=== PATIENT | male | born 1995 | race Caucasian/White ===

== ENCOUNTER 2017-04-12 20:18 | Emergency (ER) | payer BC ==
[~2017-04-12] VITALS: Ht 190.5 cm; Wt 117.2 kg
[~2017-04-12 20:18] MED LIST: MINO100C22 PO; PROP20TA67 PO
[2017-04-12 20:22] VITALS: Ht 190.5 cm; Wt 117.2 kg
[2017-04-12] MEDS ORDERED: CEPH500C PO (20:36)
[2017-04-12] MEDS ORDERED: BCTROWC EXT (20:36)
--- NOTE | 2017-04-12 20:37 | EMERGENCY ROOM VISIT NOTE ---
History First contact with patient: 20:28 Chief Complaint: BITE Stated Complaint: INSECT BITE (INFECTED) History of Present Illness The patient is a 22 year old male who presents to the Emergency Room with complaints of an infected insect bite. The patient states that he has had a red area to his left upper thigh for the past 3 days. He states the area of redness surrounding it has gradually increased. He rates the discomfort a 2/ 10. He denies any fevers/chills. Review of Systems A complete 10 point review of systems was reviewed with the patient with pertinent positives and negatives as per history of present illness. All else were negative. Past Medical/Surgical History Medical Problems: (1) No significant past medical history Surgical Problems: (1) No significant past surgical history Family History No significant family history Social History Smoking Status: Never Smoker Alcohol Use: none Marital Status: single Occupation Status: [employer] student Current/Historical Medications Scheduled Cephalexin Monohydrate (Keflex), 500 MG PO QID Mupirocin (Bactroban 2% Oint), 1 APPLN EXT BID Propranolol (Inderal), 20 MG PO BID Physical Exam Vital Signs Date Time Temp Pulse Resp B/P (MAP) Pulse Ox O2 Delivery O2 Flow Rate FiO2 04/12/17 20:46 36.9 90 16 130/82 95 04/12/17 20:22 36.9 90 16 130/82 95 Room Air Physical Exam VITALS: Vitals are noted on the nurse's note and reviewed by myself. Vital signs stable. GENERAL: This is a 22-year-old male, in no acute distress, nondiaphoretic, well- developed well-nourished. SKIN: There is an erythematous papule consistent with insect bite on the proximal left inner leg. There is surrounding erythema. There is no induration. HEART: Regular rate and rhythm without murmurs gallops or rubs. LUNGS: Clear to auscultation bilaterally without wheezes, rales or rhonchi. MUSCULOSKELETAL: Full range of motion of the left lower extremity. NEURO: Patient was alert and oriented to person place and time. Medical Decision & Procedures Medications Administered Medications (Trade) Dose Ordered Sig/Angela Route Start Time Stop Time Status Last Admin Dose Admin Cephalexin Monohydrate (Keflex 500MG Home Pack) 1 homepack NOW ONCE PO 04/12/17 20:45 04/12/17 20:46 DC 7/26/17 20:46 1 [facility] Medical Decision Differential diagnosis includes cellulitis, abscess, among others. The patient was evaluated as above. He has a mild cellulitis to the left thigh. This has been ongoing for several days. He will be placed on a short course of Keflex and was prescribed Bactroban ointment to be used topically. He was instructed to follow-up with [facility] or return here as needed for any worsening symptoms. He verbalized understanding of my assessment and treatment plan and was discharged home in good condition. Medication Reconcilliation Current Medication List: was personally reviewed by me Blood Pressure Screening Patient's blood pressure: Normal blood pressure Impression Primary Impression: Cellulitis Departure Information Dispostion Home / Self-Care Condition GOOD Prescriptions Mupirocin (Bactroban 2% Oint) 66 Appln/22 Gm Oint 1 APPLN EXT BID, #1 TUBE Prov: Parvin Freeman .SHIRLEY 04/12/17 Cephalexin Monohydrate (Keflex) 500 Mg Cap 500 MG PO QID for 6 Days, #24 CAP Prov: Parvin Freeman PA-C 04/12/17 Referrals No Doctor, Assigned (PCP) Patient Instructions [facility] Additional Instructions You were prescribed Keflex to be taken 4 times daily for total of 7 days. This is an antibiotic. All antibiotics have the potential to cause diarrhea. Stop this medication and contact a medical provider if you were to develop any significant adverse side effects including: wheezing, shortness of breath, passing out, vomiting, or a diffuse rash. Always take antibiotics as directed and COMPLETE the ENTIRE course regardless of the improvement of your symptoms. Apply the Bactroban ointment twice daily for 7 days. For pain control, you can use the following deul-xcx-nsjodck medicines (if >12 yo): - Regular strength (325mg/tab) Tylenol (acetaminophen) 2 tabs every 4-6 hours as needed. Do not exceed 12 tablets in a 24 hour period. Avoid taking more than 4 grams (4000 mg) of Tylenol per day. This includes any other sources of acetaminophen you may take on a regular basis. - Regular strength (200 mg/tab) Advil (ibuprofen) 1-2 tabs every 4-6 hours as needed. Do not exceed a dose of 3200 mg per day. Follow-up with a primary care provider for recheck. Return to the emergency department with any significantly worsening redness, fevers, or any other new/concerning symptoms. Problem Qualifiers Primary Impression: Cellulitis Site of cellulitis: extremity Site of cellulitis of extremity: lower extremity Laterality: left Qualified Codes: L03.116 - Cellulitis of left lower limb
[2017-04-12] MEDS ORDERED: CEPHALEXIN 500MG HOME PACK 1 EA BTL PO ONE (20:45)
[2017-04-12 20:46] VITALS: BP 130/82; PULSE 90; TEMP 36.9; O2SAT 95
== END 2017-04-12 20:53 | disposition home or self-care (01) ==
LOC: C.EDB 20:20 → C.EDD 20:53
DX: L03.116 Cellulitis of left lower limb (principal)

== ENCOUNTER 2017-07-09 10:50 | Emergency (ER) | payer BC ==
[~2017-07-09] VITALS: Ht 190.5 cm; Wt 121.0 kg
[~2017-07-09 10:50] MED LIST changes: +BCTROWC EXT; -MINO100C22 PO
[2017-07-09 10:54] VITALS: Ht 190.5 cm; Wt 121.0 kg
[2017-07-09] MEDS ORDERED: CEFTRIAXONE SOD INJ 1 GM ADDVIAL IV STA (11:17)
[2017-07-09 11:53] LABS: BASO % 0.2 %; BASO ABS # 0.02 K/uL (0-0.2); COMPLETE YES; EOS % 2.1 %; HEMATOCRIT 42.6 % (42-52); IG% 0.4 %; LYMPH % 22.5 %; LYMPH ABS # 2.41 K/uL (1.2-3.4); MEAN CELL VOLUME 80.4 fL (80-100); MEAN CORPUSCULAR HEMOGLOBIN 28.9 pg (25-34); MEAN CORPUSCULAR HGB CONC 35.9 g/dl (32-36); MEAN PLATELET VOLUME 8.7 fL (7.4-10.4); MONO % 6.6 %; NEUT % 68.2 %; PLATELET COUNT 211 K/uL (130-400); WHITE BLOOD COUNT 10.71 K/uL (4.8-10.8)
[2017-07-09 12:12] LABS: CALCIUM 9.3 mg/dl (8.5-10.1); CREATININE 1.17 mg/dl (0.60-1.40); POTASSIUM 3.9 mmol/L (3.5-5.1)
[2017-07-09] MEDS ORDERED: CEPH500C2 PO (12:56)
[2017-07-09] MEDS ORDERED: DOXY100C2 PO (12:56)
[2017-07-09 13:05] VITALS: BP 124/72; PULSE 76; TEMP 37; O2SAT 98
--- NOTE | 2017-07-10 11:27 | EMERGENCY ROOM VISIT NOTE ---
ED Visit Note First contact with patient: 11:01 Chief Complaint: I have a leg infection. History of Present Illness: Mr. Quinones is a 22-year-old white male who ambulates into the ED complaining of a possible infection over the lateral aspect of the left thigh. Patient reports he noted to [place]-like lesions on the lateral aspect of his left thigh yesterday. He broke these pimples open and then squeezed the temples. He then reports as the day progressed he started noticing increasing pain, redness and swelling over the lateral aspect of the thigh. He reports she had difficulty sleeping last night because of his discomfort. Currently he is complaining of pain that he describes as if someone hit him with a baseball bat in the thigh. He rates his discomfort 8/10. His pain is nonradiating. His pain worsens with palpation and minimally with walking. He has not identified any alleviating factors related to the pain. He has not taken medication for pain prior to arrival at the hospital. Associated with his pain seemed reports he had some chills last night but does not know if he had any ivory fevers. He denies other skin eruptions, other skin color changes, headache, dizziness, lightheadedness, upper respiratory tract symptoms, cough, wheezing, shortness of breath, chest pain, abdominal pain, decreased appetite, nausea, vomiting, extremity weakness/numbness/tingling Review of Systems: As noted above in history of present illness. All body systems were reviewed and found to be negative as noted above. Past Medical History: Previous episode of cellulitis. Current Medications: Inderal. Allergies to Medications: Sulfa. Social History: Patient is currently employed; he feels safe in his home environment; he admits to alcohol use and denies tobacco use. Physical Examination: Vital Signs: Date Time Temp Pulse Resp B/P (MAP) Pulse Ox O2 Delivery O2 Flow Rate FiO2 07/09/17 13:05 37.0 76 18 124/72 98 07/09/17 12:32 76 18 124/72 98 Room Air 07/09/17 10:54 37.0 77 18 133/81 98 Room Air GENERAL: 22-year-old male in mild distress due to pain, nontoxic-appearing, afebrile and hemodynamically stable. NEUROLOGICAL: Awake, alert and oriented to person, place and time. Answering questions appropriately and following commands. Normal gait. Good hand eye coordination. No focal motor sensory deficits. SKIN: Warm, dry and pink. Left Lateral Thigh: Over the lateral aspect of the thigh there is a large area of erythema extending from the hip distally and around to the anterior aspect. Within this area there are 2 scabbed over lesions that appears to be where he broke the pimples open. There is no palpable abscesses in this area. The area is warm/hot. There is no lymphangitis and there is no drainage from the wound. HEENT: Atraumatic and normocephalic. PERRLA. Sclera white and conjunctiva pink. Pharynx is nonerythematous or edematous. Speech normal. No lymphadenopathy. Trachea midline. No jugular venous distention. THORAX: Lungs sounds are clear to auscultation and equal bilaterally with symmetrical chest wall. No wheezing, rales or rhonchi. ABDOMEN: Flat, soft and nontender. Positive bowel sounds in all quadrants. No guarding, rigidity or organomegaly. LEFT LOWER EXTREMITY: No tenderness over the hip, knee or ankle. Full range of motion of the hip, knee and ankle against resistance. No bony deformity or crepitus. No shortening or malrotation. All distal neurovascular statuses are intact and equal bilaterally. No calf tenderness or cords. ED Course: Patient is assessed as noted above. Patient's medication list was noted. Laboratory Testing: Test 07/09/17 11:31 Range/Units White Blood Count 10.71 4.8-10.8 K/uL Red Blood Count 5.30 4.7-6.1 M/uL Hemoglobin 15.3 14.0-18.0 g/dL Hematocrit 42.6 42-52 % Mean Corpuscular Volume 80.4 80-100 fL Mean Corpuscular Hemoglobin 28.9 25-34 pg Mean Corpuscular Hemoglobin Concent 35.9 32-36 g/dl Platelet Count 211 130-400 K/uL Mean Platelet Volume 8.7 7.4-10.4 fL Neutrophils (%) (Auto) 68.2 % Lymphocytes (%) (Auto) 22.5 % Monocytes (%) (Auto) 6.6 % Eosinophils (%) (Auto) 2.1 % Basophils (%) (Auto) 0.2 % Neutrophils # (Auto) 7.31 1.4-6.5 K/uL Lymphocytes # (Auto) 2.41 1.2-3.4 K/uL Monocytes # (Auto) 0.71 0.11-0.59 K/uL Eosinophils # (Auto) 0.22 0-0.5 K/uL Basophils # (Auto) 0.02 0-0.2 K/uL RDW Standard Deviation 38.6 36.4-46.3 fL RDW Coefficient of Variation 13.3 11.5-14.5 % Immature Granulocyte % (Auto) 0.4 % Immature Granulocyte # (Auto) 0.04 0.00-0.02 K/uL Sodium Level 138 136-145 mmol/L Potassium Level 3.9 3.5-5.1 mmol/L Chloride Level 103 98-107 mmol/L Carbon Dioxide Level 29 21-32 mmol/L Anion Gap 6.0 3-11 mmol/L Blood Urea Nitrogen 18 7-18 mg/dl Creatinine 1.17 0.60-1.40 mg/dl Est Creatinine Clear Calc Drug Dose 140.0 ml/min Estimated GFR () 102.7 Estimated GFR (Non- 88.6 BUN/Creatinine Ratio 15.0 10-20 Random Glucose 94 70-99 mg/dl Calcium Level 9.3 8.5-10.1 mg/dl Blood Culture: Pending Patient was given 1 g of Rocephin IV for antibiotic coverage. Patient was offered pain medication and refused. Patient's case was reviewed with ; we agreed on diagnostic approach , treatment, disposition and plan. Patient was educated about today's findings and instructed on his treatment plan ; he verbalized understanding and agreement with this plan. Clinical Impression: Left lower extremity cellulitis. Disposition: Patient discharged home in stable condition; prior to departure he was reassessed and subjectively reported he was feeling better and rated his overall discomfort 5/10. Plan: Patient was prescribed Keflex 500 mg 4 times a day for 10 days and doxycycline 100 mg 2 times a day for 10 days. Patient was encouraged use ibuprofen or acetaminophen as needed for pain and/or fevers. Patient was encouraged to keep the area clean with soap and water. Patient was encouraged to follow-up at [facility] or return to the ED in 36-48 hours for recheck and culture results. Patient was encouraged return the ED sooner for worsening/uncontrolled pain, fevers, worsening cellulitis outside his whine of demarcation, red streaking or any new/concerning symptoms.
== END 2017-07-09 13:06 | disposition home or self-care (01) ==
LOC: C.EDB 10:51 → C.EDD 13:06
DX: L03.116 Cellulitis of left lower limb (principal); Z79.899 Other long term (current) drug therapy

== ENCOUNTER 2017-07-11 17:05 | Emergency (ER) | payer BC ==
[~2017-07-11] VITALS: Ht 190.5 cm; Wt 123.4 kg
[~2017-07-11 17:05] MED LIST changes: +CEPH500C2 PO; +DOXY100C2 PO
[2017-07-11 17:07] VITALS: TEMP 36.3; Ht 190.5 cm; Wt 123.4 kg
[2017-07-11 17:36] VITALS: BP 168/76; PULSE 76; O2SAT 99
--- NOTE | 2017-07-11 22:07 | EMERGENCY ROOM VISIT NOTE ---
ED Visit Note First contact with patient: 17:12 CHIEF COMPLAINT: Wound check HISTORY OF PRESENT ILLNESS: This 22-year-old patient presents to the emergency department for a recheck of left thigh cellulitis. Patient states the infection has been getting better. No fevers. He is been taking antibiotics as directed. Previous care outlined has been followed without difficulty. REVIEW OF SYSTEMS: A 6 system review of systems was completed with positives and pertinent negatives listed in the HPI. ALLERGIES: Sulfa MEDICATIONS: Doxy, Keflex PMH: Unchanged from previous visit. PHYSICAL EXAM: Vital Signs reviewed, see Nurse's notes. Patient is afebrile, vital signs stable. GENERAL: Pleasant male, awake, alert, well appearing, no acute distress SKIN: Inspection of the left thigh reveals improving cellulitis. MUSCULOSKELETAL: Left femur are nontender to palpation. NEURO: No sensory or motor deficits noted. EMERGENCY DEPARTMENT COURSE AND DECISION MAKING: I examined the patient. The patient presented with an isolated wound as above. The cellulitis is healing well. ER Treatment: Patient is advised to follow-up with family care in a few days or here in the ER sooner for fevers, spreading of infection, worsening signs or symptoms or as needed. Discharge instructions reviewed. Discharged in stable condition. DIAGNOSIS: Healing left thigh cellulitis, wound recheck TREATMENT PLAN: As below Current/Historical Medications Scheduled Cephalexin Monohydrate (Keflex), 500 MG PO QID Doxycycline Hyclate (Vibramycin), 100 MG PO BID Propranolol (Inderal), 20 MG PO BID Allergies Coded Allergies: Sulfa Antibiotics (Unverified Allergy, Unknown, RASH, 07/09/17) Vital Signs Date Time Temp Pulse Resp B/P (MAP) Pulse Ox O2 Delivery O2 Flow Rate FiO2 07/11/17 17:36 76 168/76 99 07/11/17 17:35 76 168/76 99 Room Air 07/11/17 17:07 36.3 74 20 165/85 99 Room Air Departure Information Impression Primary Impression: Encounter for wound re-check Additional Impression: elevated blood pressure Dispostion Home / Self-Care Condition GOOD Referrals Jesse Rolon MD (PCP) Forms WORK / SCHOOL INSTRUCTIONS, HOME CARE DOCUMENTATION FORM, IMPORTANT VISIT INFORMATION Patient Instructions Cellulitis - [facility], [facility] Additional Instructions Continue antibiotics as prescribed from your prior ER visit. Monitor your blood pressure. It was high today. Ibuprofen(Motrin, Advil) may be used for fever or pain. Use 600mg every six hours as needed. Take with food. Avoid using more than 2400mg in a 24 hour period. Do not use 2400mg per day for more than three consecutive days without physician direction. Prolonged inappropriate use can lead to stomach upset or ulcers. (AND/OR) Acetaminophen(Tylenol) may be used for fever or pain. Use 1000mg every six hours as needed. Avoid using more than 3000mg in a 24 hour period. Warm compresses to the affected area 4 times daily for 15-20 minutes. Rest and drink plenty of fluids. Continue current medications. Return to the ER for severe pain, persistent fevers, spreading redness, or any worsening of your condition. Follow up with your primary physician within 2-3 days for a recheck of the current condition. Problem Qualifiers
== END 2017-07-11 17:37 | disposition home or self-care (01) ==
LOC: C.EDB 17:07 → C.EDD 17:37
DX: L03.116 Cellulitis of left lower limb (principal); Z09 Encounter for follow-up examination after completed treatment for conditions other than malignant neoplasm; R03.0 Elevated blood-pressure reading, without diagnosis of hypertension

== ENCOUNTER → 2017-12-07 | Outpatient (CLI) | payer BC ==
[~2017-12-07] MED LIST changes: -BCTROWC EXT; -CEPH500C2 PO
--- NOTE | 2017-12-07 12:38 | DIAGNOSTIC IMAGING REPORT ---
TESTICULAR ULTRASOUND CLINICAL HISTORY: N50.9 right testicular mass COMPARISON STUDY: No previous studies for comparison. FINDINGS: The right testis measures 48 x 21 x 32 mm. The left testis measures 47 x 21 x 30 mm. There is no evidence of testicular torsion. No intratesticular masses are visualized. There are bilateral epididymal cysts. An 8 mm right epididymal cyst corresponds the patient's palpable abnormality. IMPRESSION: 1. 8 mm right-sided epididymal cyst which correlates with the patient's palpable abnormality 2. No evidence of intratesticular mass. No evidence of testicular torsion Electronically signed by: William Ocampo M.D. 12/07/2017 12:37 PM Dictated Date/Time: 12/07/2017 12:36 PM
== END | disposition home or self-care (01) ==
LOC: C.ULTRBC 12:09
PROVIDERS: ATTEND Nurse Practitioner Family
DX: N50.9 Disorder of male genital organs, unspecified (principal); N50.3 Cyst of epididymis

== ENCOUNTER 2018-01-13 08:10 | Emergency (ER) | payer BC ==
[~2018-01-13] VITALS: Ht 190.5 cm; Wt 126.0 kg
[2018-01-13 08:12] VITALS: TEMP 36.7; Ht 190.5 cm; Wt 126.0 kg
[2018-01-13] MEDS ORDERED: CYCL10TA6 PO (08:50)
[2018-01-13] MEDS ORDERED: KETO10TA PO (08:50)
[2018-01-13 09:04] VITALS: BP 125/80; PULSE 71; O2SAT 99
--- NOTE | 2018-01-13 14:10 | EMERGENCY ROOM VISIT NOTE ---
ED Visit Note First contact with patient: 08:19 Chief Complaint: Neck pain. History of Present Illness: Mr. Quinones is a 22-year-old male who ambulates into the ED complaining of neck pain. Patient denies any recent or previous significant neck injuries or surgeries. Patient reports initially 4 days ago his pain just started. He reports the pain was mild and has gradually progressed. He describes his pain as a spasm sensation. The pain is located bilaterally in the mid trapezius area which is more pronounced on the left. He rates his discomfort 8/10. His pain is nonradiating. His pain worsens with all movement of the neck and minimally with palpation. He has not identified any alleviating factors related to the pain. He reports yesterday he had taken 1 dose of ibuprofen and 1 dose of Aleve without relief of his discomfort. He has not noted any associated symptoms and denies fevers, chills, sweats, skin eruptions, skin color changes, skin eruptions, skin color changes, upper respiratory tract symptoms, neck stiffness, chest pain, shortness of breath, decreased appetite, nausea, vomiting , extremity weakness/numbness/tingling. Review of Systems: As noted above in history of present illness. 8 body systems were reviewed and found to be negative as noted above. Past Medical History: Patient denies. Current Medications: Inderal, Vibramycin. Allergies to Medications: Sulfa. Social History: Patient is currently a college student; he feels safe in his home environment; he denies tobacco use and admits to alcohol use. Physical Examination: Vital Signs: Date Time Temp Pulse Resp B/P (MAP) Pulse Ox O2 Delivery O2 Flow Rate FiO2 01/13/18 09:04 71 18 125/80 99 01/13/18 08:12 36.7 75 18 147/81 95 Room Air GENERAL: 22-year-old male in mild distress due to pain, nontoxic-appearing, afebrile and hemodynamically stable. NEUROLOGICAL: Awake, alert and oriented to person, place and time. Answering questions appropriately and following commands. Normal gait. Good hand eye coordination. SKIN: Warm, dry and pink. No soft tissue eruptions or trauma noted. HEENT: Atraumatic and normocephalic. Sclera white and conjunctiva pink. No drainage from naris. Airway is patent. Speech is normal and clear. No posterior pharyngeal erythema or edema. No lymphadenopathy. Trachea midline. No jugular venous distention. BACK: No tenderness over the bony cervical and thoracic spine. Thoracic spine : Moderate tenderness and spasm in the bilateral mid trapezius level with more tenderness and spasm over the left side. Decreased range of motion in all movements due to pain. No nuchal rigidity or meningismus. No CVA tenderness. THORAX: Lungs sounds are clear to auscultation and equal bilaterally with symmetrical chest wall. UPPER EXTREMITIES: Moves extremities well on command and with purpose. No tenderness in the shoulders, elbows, forearms or wrists. Mild decreased range of motion in extension and abduction at the glenohumeral joint. 5/5 muscle strength in all movements of the shoulders, elbows, forearm and wrists. Capillary refill is brisk. He was able to distinguish light sensations to all dermatomes. 2+ bicipital, tricipital and brachial radialis deep tendon reflexes. ED Course: Patient is assessed as noted above. Patient's medication list was reviewed. Patient was offered pain medication and refused. Patient was educated about today's findings and instructed on his treatment plan ; he verbalized understanding and agreement with this plan. Clinical Impression: Neck muscle spasms. Decision-Making: Hortencia my differential diagnosis I considered muscle spasm, muscle strain, acromion clavicular joint separation, meningitis and other causes. Disposition: Patient discharged home in stable condition; prior to departure he was reassessed and subjectively reported he was feeling the same. Plan: Comfort measures were discussed with the patient including rest, soft cervical collar use, alternating Toradol and acetaminophen every 3 hours and ice/heat use. Patient was prescribed Flexeril 10 mg every 8 hours as needed for muscle spasm; patient was educated on using the medication prior to driving and to avoid alcohol use with the medication. Patient was encouraged to come out of the cervical collar 4-5 times a day while awake and do simple range of motion exercises. Patient was encouraged to follow-up with his primary care provider for recheck in 3-4 days. Patient was encouraged return the ED for worsening pain, headaches, fevers, vomiting, upper extremity weakness/numbness/tingling or any new/concerning symptoms.
== END 2018-01-13 09:05 | disposition home or self-care (01) ==
LOC: C.EDB 08:11 → C.EDA 09:05
DX: M62.838 Other muscle spasm (principal); Z88.2 Allergy status to sulfonamides